=== PATIENT | male | born 1950 | race Caucasian/White ===

== ENCOUNTER 2017-12-06 17:57 | Emergency (ER) | payer BC, MEDICARE, SELFPAY ==
[2017-12-06 18:32] VITALS: BP 141/84; PULSE 103; RESP 16; TEMP 37; O2SAT 96; BMI 26.5
[2017-12-06 19:44] VITALS: PULSE 97; RESP 18; O2SAT 98
[2017-12-06 20:01] LABS: Absolute Lymphocyte Count 2.93 X10^3/ul (0.83-4.51); Absolute Neutrophil Count 4.6 X10^3/uL (2.0-7.7); Basophil# 0.02 X10^3/uL; Basophil% 0.2 % (0-1); Eosinophil# 0.34 X10^3/uL; Hematocrit 42.1 % (40-54); Hemoglobin 14.2 g/dl (13.0-16.5); Lymphocyte # 2.93 X10^3/ul (4.0); Lymphocyte % 34.8 % (19-41); Mean Corp Hgb Conc 33.7 g/gl (32-36); Mean Corpuscular Hgb 34.9 pg (27.0-32.0); Mean Corpuscular Volume 103.4 fL (80-94); Mean Platelet Vol. 10.6 fl (6.2-12.0); Monocyte% 5.9 % (0-10); Neutrophil # 4.61 X10^3/uL (2.7-7.7); Neutrophil % 54.7 % (47-70); Platelet Count 319 K/mm3 (150-450); RBC Distribution Width CV 13.3 % (11.6-14.6); RBC Distribution Width SD 50.4 fl (35.1-43.9); Red Blood Count 4.07 M/mm3 (4.6-6.2); White Blood Count 8.4 K/mm3 (4.4-11.0)
[2017-12-06 20:02] LABS: POSITIVE COUNT NO; POSITIVE DIFFERENTIAL NO; POSITIVE MORPHOLOGY NO
[2017-12-06 20:14] LABS: Anion Gap 7 (5-15); BUN 8 mg/dL (7-18); BUN/Creat Ratio 7.4 RATIO (10-20); Calcium,Total 8.8 mg/dL (8.5-10.1); Chloride 106 mmol/L (98-107); Creatinine, Serum 1.08 mg/dL (0.70-1.30); EST Glomerular Filtration Rate 73 mL/min (>60); Est Glom Filt Rate - Afr Amer 88 mL/min (>60); Estimated Creatinine Clearance 67.28 ml/min; Glucose 109 mg/dL (74-106); Potassium 4.1 mmol/L (3.5-5.1); Sodium Level 140 mmol/L (136-145)
--- NOTE | 2017-12-06 20:17 | NURSING ---
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
--- NOTE | 2017-12-06 20:33 | EKG12_ITS ---
Test Reason : Blood Pressure : / mmHG Vent. Rate : 071 BPM Atrial Rate : 071 BPM P-R Int : 128 ms QRS Dur : 088 ms QT Int : 396 ms P-R-T Axes : 063 -19 039 degrees QTc Int : 430 ms Normal sinus rhythm Septal infarct , age undetermined Abnormal ECG Confirmed by PURNIMA KELLOGG, INA ([id number]), purchase request editor GIGI PRASAD ([id number]) on 12/07/2017 3:56:57 PM Referred By: Confirmed By:INA FELTON MD
[2017-12-06 20:44] VITALS: PULSE 101; RESP 20; O2SAT 98
--- NOTE | 2017-12-06 20:49 | ED.RN ---
COUNSELING CENTER CALLED AND TAL WILL BE IN TO SEE PATIENT IN THE NEAR FUTURE
--- NOTE | 2017-12-06 21:20 | NURSING ---
CRISIS ON SITE
[2017-12-06 21:53] VITALS: BP 138/78; PULSE 99; RESP 18; O2SAT 99
--- NOTE | 2017-12-06 21:54 | NURSING ---
TAL HAD ARRIVED FROM CRISIS AND IS GOING TO TALK WITH THE PT.
[2017-12-06 21:57] LABS: Amphetamine Urine VISTA NEGATIVE (<1000 ng/mL); Barbiturate Urine VISTA NEGATIVE (< 200 ng/mL); Benzodiazepine Urine VISTA NEGATIVE (< 200 ng/mL); Cocaine Urine VISTA NEGATIVE (< 300 ng/mL); Ecstacy Urine VISTA NEGATIVE (< 500 ng/mL); Methadone Urine VISTA NEGATIVE (< 300 ng/mL); PCP Urine VISTA NEGATIVE (< 25 ng/mL); THC Urine VISTA NEGATIVE (< 50 ng/mL); Vista UDS pH Range 5
--- NOTE | 2017-12-06 22:39 | ED.DEP ---
ED Disposition - Plan for ED Patient: Disposition: Home or Assisted Living Chief Complaint: Mental Health Referrals: Counseling,Center [GROUP OF PHYSICIANS] - 1 Day Additional Instructions: You are being discharged to [facility]. We will follow-up your pillowcase folder and the counseling center tomorrow. Return to ER feeling worse.
[2017-12-06 22:59] VITALS: BP 124/76; PULSE 85; RESP 18; O2SAT 94
== END 2017-12-06 23:00 | disposition home or self-care (01) ==
PROVIDERS: Emergency Provider Emergency Medicine; Family Provider Family Medicine; PCP Family Medicine
DX: F22 Delusional disorders (principal); Z59.0 Homelessness; I25.2 Old myocardial infarction; I25.10 Atherosclerotic heart disease of native coronary artery without angina pectoris; Z72.0 Tobacco use; F99 Mental disorder, not otherwise specified; Z79.899 Other long term (current) drug therapy
CPT/HCPCS: 80048; 80307; 80320; 85025; 93005; 99284; G0480

== ENCOUNTER 2017-12-13 17:29 | Emergency (ER) | payer BC, MEDICARE, SELFPAY ==
[2017-12-13 17:34] VITALS: BP 85/57; PULSE 76; RESP 20; TEMP 36.6; O2SAT 94; BMI 26.5
--- NOTE | 2017-12-13 17:49 | EKG12_ITS ---
Test Reason : Blood Pressure : / mmHG Vent. Rate : 074 BPM Atrial Rate : 074 BPM P-R Int : 128 ms QRS Dur : 082 ms QT Int : 368 ms P-R-T Axes : 072 -24 059 degrees QTc Int : 408 ms Normal sinus rhythm Septal infarct , age undetermined Abnormal ECG Confirmed by PURNIMA KELLOGG, INA ([id number]), editor greeting card GIGI PRASAD ([id number]) on 12/15/2017 3:58:17 PM Referred By: JAMAL Confirmed By:INA FELTON MD
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
--- NOTE | 2017-12-13 17:51 | RAD_ITS ---
STUDY: X-RAY CHEST REASON FOR EXAM: Male, 66 years old. Chest pain TECHNIQUE: Single AP portable view of the chest. COMPARISON: Prior study of 12/28/2016 FINDINGS: security monitor leads are present. The lungs are clear and expanded. There is no demonstrated pleural abnormality. Normal size heart. Normal mediastinum and claude. Normal visualized pulmonary arteries. Normal visualized aortic arch and descending thoracic aorta. Normal visualized thoracic spine. Normal visualized ribs, clavicles, and shoulders. There is no demonstrated abnormality of the visualized soft tissue structures of the upper abdomen. RAD/Chest 1 View (Portable) IMPRESSION: No acute cardiopulmonary disease process is seen. Chest findings are stable in the interval. Electronically Signed: Hossein Gill MD at 18:19 EDT , Service support ,
[2017-12-13 18:25] LABS: Absolute Lymphocyte Count 2.38 X10^3/ul (0.83-4.51); Absolute Neutrophil Count 4.9 X10^3/uL (2.0-7.7); Basophil# 0.02 X10^3/uL; Basophil% 0.3 % (0-1); Eosinophil# 0.17 X10^3/uL; Eosinophils% 2.1 % (0-5); Hemoglobin 14.1 g/dl (13.0-16.5); Lymphocyte # 2.38 X10^3/ul (4.0); Lymphocyte % 29.8 % (19-41); Mean Corp Hgb Conc 32.8 g/gl (32-36); Mean Corpuscular Hgb 33.8 pg (27.0-32.0); Mean Corpuscular Volume 103.1 fL (80-94); Mean Platelet Vol. 10.9 fl (6.2-12.0); Monocyte# 0.56 X10^3/uL; Neutrophil # 4.86 X10^3/uL (2.7-7.7); Neutrophil % 60.7 % (47-70); POSITIVE COUNT NO; POSITIVE DIFFERENTIAL NO; POSITIVE MORPHOLOGY NO; Platelet Count 309 K/mm3 (150-450); RBC Distribution Width CV 13.2 % (11.6-14.6); RBC Distribution Width SD 49.6 fl (35.1-43.9); Red Blood Count 4.17 M/mm3 (4.6-6.2)
[2017-12-13 18:52] LABS: Anion Gap 5 (5-15); BUN 19 mg/dL (7-18); Calcium,Total 8.8 mg/dL (8.5-10.1); Chloride 108 mmol/L (98-107); Creatinine, Serum 0.95 mg/dL (0.70-1.30); EST Glomerular Filtration Rate 84 mL/min (>60); Est Glom Filt Rate - Afr Amer 102 mL/min (>60); Estimated Creatinine Clearance 76.49 ml/min; Glucose 84 mg/dL (74-106); Lipase 85 U/L (73-393); Potassium 4.1 mmol/L (3.5-5.1); Sodium Level 141 mmol/L (136-145)
[2017-12-13 19:52] VITALS: BP 112/70; PULSE 74; RESP 18; O2SAT 95
--- NOTE | 2017-12-13 21:22 | ED.DEP ---
ED Disposition - Plan for ED Patient: Chief Complaint: Chest Pain Instructions: ED Chest Pain Atypical Unkn Cause Referrals: Bernard Barber MD [Primary Care Provider] - Amari Pierson MD [STAFF PHYSICIAN] -
[2017-12-13 21:30] VITALS: BP 96/68; PULSE 73; RESP 18; O2SAT 96
== END 2017-12-13 21:31 | disposition home or self-care (01) ==
PROVIDERS: Emergency Provider Emergency Medicine; Family Provider Family Medicine; PCP Family Medicine
DX: R07.9 Chest pain, unspecified (principal); R06.00 Dyspnea, unspecified; I10 Essential (primary) hypertension; E78.00 Pure hypercholesterolemia, unspecified; F17.200 Nicotine dependence, unspecified, uncomplicated
CPT/HCPCS: 71045; 80048; 83690; 84484; 85025; 93005; 99285; J7030; A4216

== ENCOUNTER 2018-01-24 20:40 | Emergency (ER) | payer BC, MEDICARE, SELFPAY ==
[2018-01-24 20:43] VITALS: BP 110/70; PULSE 87; RESP 17; TEMP 36.9; O2SAT 97; BMI 26.1
--- NOTE | 2018-01-24 20:52 | NURSING ---
PUFFER TENDER CALLED FOR EKG, PULLED OLD EKG'S FOR
--- NOTE | 2018-01-24 21:27 | EKG12_ITS ---
Test Reason : CP Blood Pressure : / mmHG Vent. Rate : 071 BPM Atrial Rate : 071 BPM P-R Int : 126 ms QRS Dur : 084 ms QT Int : 402 ms P-R-T Axes : 072 -23 056 degrees QTc Int : 436 ms Normal sinus rhythm Septal infarct , age undetermined, cannot be excluded Abnormal ECG Confirmed by CHERYL KELLOGG, BEN ([id number]), film editor GIGI PRASAD ([id number]) on 01/27/2018 12:51:24 PM Referred By: ROSA ISELA Confirmed By:BEN LUNA MD
--- NOTE | 2018-01-24 21:35 | RAD_ITS ---
STUDY: X-RAY CHEST REASON FOR EXAM: Male, 67 years old. Back pain and numbness and tingling in feet and hands TECHNIQUE: Single AP portable view of the chest. COMPARISON: Prior study of December 13, 2017 FINDINGS: bus monitor leads are present. The lungs are clear and expanded. There is an accessory azygos fissure of the right upper lobe representing an anatomical variant. There is no demonstrated pleural abnormality. Normal size heart. Normal mediastinum and claude. Normal visualized pulmonary arteries. Normal visualized aortic arch and descending thoracic aorta. Normal visualized thoracic spine. Normal visualized ribs, clavicles, and shoulders. There is no demonstrated abnormality of the visualized soft tissue structures of the upper abdomen. RAD/Chest 1 View (Portable) IMPRESSION: Normal x-ray examination of the chest. Electronically Signed: Hossein Gill MD at 22:00 EDT , Service support ,
[2018-01-24 21:39] VITALS: O2SAT 100
[2018-01-24] MEDS: Aspirin 81 MG TAB.CHEW 324 MG PO (21:47)
[2018-01-24 21:58] LABS: Absolute Lymphocyte Count 2.76 X10^3/ul (0.83-4.51); Absolute Neutrophil Count 5.4 X10^3/uL (2.0-7.7); Basophil# 0.04 X10^3/uL; Basophil% 0.4 % (0-1); Eosinophil# 0.45 X10^3/uL; Eosinophils% 4.8 % (0-5); Hematocrit 39.4 % (40-54); Hemoglobin 13.1 g/dl (13.0-16.5); Lymphocyte # 2.76 X10^3/ul (4.0); Lymphocyte % 29.4 % (19-41); Mean Corp Hgb Conc 33.2 g/gl (32-36); Mean Corpuscular Volume 102.3 fL (80-94); Mean Platelet Vol. 10.7 fl (6.2-12.0); Monocyte# 0.71 X10^3/uL; Monocyte% 7.6 % (0-10); Neutrophil # 5.42 X10^3/uL (2.7-7.7); Neutrophil % 57.6 % (47-70); POSITIVE COUNT NO; POSITIVE DIFFERENTIAL NO; POSITIVE MORPHOLOGY NO; Platelet Count 253 K/mm3 (150-450); RBC Distribution Width CV 13.1 % (11.6-14.6); RBC Distribution Width SD 49.1 fl (35.1-43.9); Red Blood Count 3.85 M/mm3 (4.6-6.2); White Blood Count 9.4 K/mm3 (4.4-11.0)
[2018-01-24 22:31] LABS: Anion Gap 6 (5-15); BUN 21 mg/dL (7-18); BUN/Creat Ratio 19.6 RATIO (10-20); Calcium,Total 8.8 mg/dL (8.5-10.1); Chloride 108 mmol/L (98-107); Creatinine, Serum 1.07 mg/dL (0.70-1.30); EST Glomerular Filtration Rate 73 mL/min (>60); Est Glom Filt Rate - Afr Amer 89 mL/min (>60); Estimated Creatinine Clearance 66.99 ml/min; Glucose 99 mg/dL (74-106); Sodium Level 140 mmol/L (136-145)
--- NOTE | 2018-01-24 22:44 | ED.VISSUMM ---
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 He reports that today he has had intermittent episodes of chest pain he describes as sharp and lasting seconds. He is pain-free currently. He reports the pain is severe at worst. He denies any nausea, vomiting, shortness of breath, or diaphoresis. This pain is not exertional. Patient reports that he moved to [facility] approximately 1 month ago. He is concerned that the color of the medications that they are giving him is different than what he had been taking at home. Review of systems: General: No fever, chills, cold sweats. Cardiovascular: No palpitations. Respiratory: No cough, shortness of breath, dyspnea on exertion. Gastrointestinal: No abdominal pain, nausea, vomiting, diarrhea, melena, or hematochezia. Genitourinary: No dysuria, frequency, hematuria. Skin: No rash. Neuro: No headache, numbness, weakness. Physical Examination: Vitals: Stable. Afebrile. General: Well-nourished and well-developed. Head: Normocephalic atraumatic. Neck: Supple, no lymphadenopathy. No JVD. Nontender. Cardiovascular: Regular rate and rhythm. 2 out of 6 systolic murmur. Respiratory: No respiratory distress. Clear to auscultation bilaterally. Abdominal: Soft, nontender, nondistended, normal bowel sounds. No guarding, rebound, or peritoneal signs. Back: Nontender. Extremities: Nontender, no edema. Skin: Normal color, no rash. Neurologic: Alert and oriented ?3. Cranial nerves II through XII are intact. Normal strength and sensation. Psych: Normal affect. Test Results: EKG is sinus at 71 with no acute changes. Is unchanged from last month. Troponins normal. Chem-7 is more for chloride 108 and BUN 21. CBC is normal. Emergency Department Course and Treatment: I did obtain the patient's medication list from [facility] as well as is a admission H&P from December 09. The medications are the same on both of these lists. I discussed this with the patient and he is convinced that he is getting the wrong medications. Treatment Plan: The patient does have a history of schizophrenia and has a case finisher from the counseling center. He does not meet criteria for admission to a psychiatric facility. However, I did contact the counseling center and asked that the his case management touch base with him tomorrow. Disposition: To home in improved and stable condition. Impression: 1. Atypical chest pain. 2. History of schizophrenia. This note was generated with [employer] dictation software. It may contain incorrect words, spelling, and punctuation that were not noted in review of the chart prior to signing ED Disposition - Plan for ED Patient: Disposition: Home or Assisted Living Chief Complaint: Chest Pain Instructions: ED Chest Pain Atypical Unkn Cause Referrals: Bernard Barber MD [Primary Care Provider] - As soon as possible
[2018-01-24 23:20] VITALS: BP 133/61; PULSE 71; RESP 18; O2SAT 99
== END 2018-01-24 23:24 | disposition home or self-care (01) ==
LOC: ED 22:24
PROVIDERS: Emergency Provider Emergency Medicine; Family Provider Family Medicine; PCP Family Medicine
DX: R07.89 Other chest pain (principal); E78.00 Pure hypercholesterolemia, unspecified; F17.210 Nicotine dependence, cigarettes, uncomplicated; F20.9 Schizophrenia, unspecified
CPT/HCPCS: 71045; 80048; 84484; 85025; 93005; 99285; A4216

== ENCOUNTER 2018-02-15 08:55 | Emergency (ER) | payer BC, MEDICARE, SELFPAY ==
[2018-02-15 08:56] VITALS: BP 118/54; PULSE 71; RESP 18; TEMP 36.1; O2SAT 97; BMI 27.3
--- NOTE | 2018-02-15 09:13 | EKG12_ITS ---
Test Reason : CP Blood Pressure : / mmHG Vent. Rate : 064 BPM Atrial Rate : 064 BPM P-R Int : 128 ms QRS Dur : 084 ms QT Int : 414 ms P-R-T Axes : 066 -29 030 degrees QTc Int : 427 ms Normal sinus rhythm Septal infarct , age undetermined Abnormal ECG Confirmed by PURNIMA KELLOGG, INA ([id number]), movie editor GIGI PRASAD ([id number]) on 02/18/2018 3:00:43 PM Referred By: GURVINDER Confirmed By:INA FELTON MD
--- NOTE | 2018-02-15 09:29 | RAD_ITS ---
STUDY: X-RAY CHEST REASON FOR EXAM: Male, 67 years old. Chest pain. TECHNIQUE: PA and lateral views of the chest. COMPARISON: Comparison is made with prior study dated January 24, 2018. FINDINGS: EKG electrodes are seen. There is evidence of increased markings with areas of confluence in the right middle lobe and lingular segment of the left upper lobe as compared to prior study. This may represent early infiltrates. Radiographic follow-up is recommended. Azygos lobe is seen. This is a normal variant. There is no demonstrated pleural abnormality. Normal size heart. Normal mediastinum and claude. Normal visualized pulmonary arteries. Normal visualized aortic arch and descending thoracic aorta. Normal visualized thoracic spine. Normal visualized ribs, clavicles, and shoulders. There is no demonstrated abnormality of the visualized soft tissue structures of the upper abdomen. RAD/Chest PA and Lateral IMPRESSION: Findings suggestive of a patch infiltrates in the right middle lobe and lingular segment of the left upper lobe. Radiographic follow-up is recommended. Electronically Signed: Thad Brooks MD at 9:55 EDT Tel [phone], Service support ,
[2018-02-15 09:33] LABS: Absolute Neutrophil Count 4.3 X10^3/uL (2.0-7.7); Basophil# 0.02 X10^3/uL; Basophil% 0.3 % (0-1); Eosinophil# 0.22 X10^3/uL; Eosinophils% 3.2 % (0-5); Lymphocyte % 23.6 % (19-41); Mean Corp Hgb Conc 34.2 g/gl (32-36); Mean Corpuscular Hgb 34.7 pg (27.0-32.0); Mean Corpuscular Volume 101.3 fL (80-94); Monocyte# 0.59 X10^3/uL; Monocyte% 8.7 % (0-10); Neutrophil # 4.33 X10^3/uL (2.7-7.7); Neutrophil % 64.1 % (47-70); Platelet Count 251 K/mm3 (150-450); RBC Distribution Width CV 13.1 % (11.6-14.6); RBC Distribution Width SD 48.6 fl (35.1-43.9); Red Blood Count 3.75 M/mm3 (4.6-6.2); White Blood Count 6.8 K/mm3 (4.4-11.0)
[2018-02-15 09:34] LABS: POSITIVE COUNT NO; POSITIVE DIFFERENTIAL NO; POSITIVE MORPHOLOGY NO
[2018-02-15 09:46] LABS: ALB/GLOB Ratio 1.2 RATIO (0.9-2.4); AST(SGOT) 15 U/L (15-37); Alanine Aminotransfer ALT/SGPT 21 U/L (16-61); Albumin, Serum 3.6 g/dL (3.2-5.0); Alkaline Phosphatase 39 U/L (45-117); Anion Gap 8 (5-15); BUN 16 mg/dL (7-18); BUN/Creat Ratio 12.6 RATIO (10-20); Calcium,Total 8.5 mg/dL (8.5-10.1); Chloride 107 mmol/L (98-107); Creatinine, Serum 1.27 mg/dL (0.70-1.30); EST Glomerular Filtration Rate 60 mL/min (>60); Est Glom Filt Rate - Afr Amer 73 mL/min (>60); Estimated Creatinine Clearance 56.44 ml/min; Glucose 117 mg/dL (74-106); Lipase 82 U/L (73-393); Potassium 4.3 mmol/L (3.5-5.1); Protein, Total 6.6 g/dL (6.4-8.2); Sodium Level 142 mmol/L (136-145)
--- NOTE | 2018-02-15 10:18 | ED.DCSUM_ITS ---
- ER Visit Summary Date of Service: 02/15/18 Chief Complaint: Multiple complaints History of Present Illness: The patient is a 67 M who presents with multiple complaints. He states I have a weird feeling inside me. He complains of burning in his hands especially the right hand. He complains of back pain which he attributes to arthritis. He complains of gas pains throughout his stomach. Earlier he felt like he needed to burp and then he had pain radiate up his chest into my heart. He also complains of a cough. Physical Examination: Afebrile vitals are normal Moist mucous membranes Heart regular rate and rhythm Lungs are clear without rales rhonchi or wheezes The abdomen soft with mild diffuse abdominal tenderness Patient has focal tenderness along the extensor tendons of the right thumb no focal bony tenderness active full range of motion with normal sensation and brisk capillary refill Test Results: EKG shows sinus rhythm at a rate of 64. CBC CMP lipase troponin all normal. Chest x-ray shows patchy infiltrates in the right middle lobe and possible left lingula. Emergency Department Course and Treatment: Patient underwent a broad workup given his multiple complaints. In regards to his hand pain I believe he does have a component of tendinitis given focal tenderness along the extensors of the right thumb. He was given a thumb spica splint. After an episode of flatus his abdominal pain is completely resolved. He has a repeat benign exam. He does complain of cough and chest x-ray shows possible infiltrates. He will be treated with Levaquin given penicillin and cephalosporin allergies. He will follow-up with his primary care physician and he was discharged home. Treatment Plan: [] Disposition: Discharge Impression: Community acquired pneumonia Tendinitis right hand Abdominal pain, resolved This note was generated with [employer] (formerly known [employer]) dictation software. It may contain incorrect words, spelling, and punctuation that were not noted in review of the chart prior to signing ED Disposition - Plan for ED Patient: Chief Complaint: Other, Pain/Inj Referrals: Bernard Barber MD [Primary Care Provider] -
--- NOTE | 2018-02-15 10:18 | ED.DEP ---
ED Disposition - Plan for ED Patient: Chief Complaint: Other, Pain/Inj Instructions: What Is De Quervain Tenosynovitis?, ED Pneumonia Adult, ED Abdominal Pain Unkn Cause Male Prescriptions: levoFLOXacin tablet [Levaquin] 500 mg PO DAILY #7 tab Referrals: Bernard Barber MD [Primary Care Provider] -
[2018-02-15 10:58] VITALS: BP 150/72; PULSE 74; RESP 18; O2SAT 95
== END 2018-02-15 10:59 | disposition home or self-care (01) ==
PROVIDERS: Emergency Provider Emergency Medicine; Family Provider Family Medicine; PCP Family Medicine
DX: J18.9 Pneumonia, unspecified organism (principal); M77.9 Enthesopathy, unspecified; R10.9 Unspecified abdominal pain; I10 Essential (primary) hypertension; K21.9 Gastro-esophageal reflux disease without esophagitis; E78.00 Pure hypercholesterolemia, unspecified; I25.2 Old myocardial infarction; Z72.0 Tobacco use
CPT/HCPCS: 71046; 80053; 83690; 84484; 85025; 93005; 99284; A4216

== ENCOUNTER 2018-02-15 19:00 | Emergency (ER) | payer BC, MEDICARE, SELFPAY ==
[2018-02-15 19:00] VITALS: BP 119/62; PULSE 63; RESP 14; TEMP 35.5; O2SAT 99; BMI 27.0
--- NOTE | 2018-02-15 21:55 | ED.RN ---
PT STATES THAT HE IS TIRED OF WAITING FOR THE DOCTOR AND OUT IN THE HALLWAY STATING THAT WE WERE NOT DOING ANYTHING FOR HIM. I WENT IN TO TALK THE PATIENT AND EXPLAIN TO HIM THAT OTHER PATIENT WERE HERE BEFORE HIM AND THAT IS WHY HE IS WAITING. PT AGREES TO GO BACK TO HIS ROOM AND WAIT FOR THE DR. AFTER TWO MINUTES OF WAITING DR NATARAJAN WALKED INTO THE ROOM AND TALKS TO THE PATIENT. THE PATIENT STATES THAT HE WANTS TO KNOW WHAT IS WRONG WITH HIS HANDS THAT FEEL LIKE THEY ARE BURNING. DR NATARAJAN EXPLAINED THAT HE DOESN'T KNOW WHAT IS WRONG WITH HIS HANDS BUT IF IT IS THE SAME PAIN THAT HE SAW THE PATIENT FOR SEVERAL MONTHS AGO THEN THE PATIENT NEEDS TO FOLLOW UP WITH HIS PCP. HE THEN EXPLAINED TO THE PATIENT THAT HE WOULD NOT BE GIVING HIM PAIN MEDICATION TONIGHT. AND THEN ASKED IF THE PT WOULD STILL LIKE TO BE SEE, PT PT STATED NO I DO NOT PT THEN WALKED OFF THE UNIT ASKING HOW HE IS GOING TO GET HOME. OFFERED TO HELP CALL SEVERAL PEOPLE FOR A RIDE HOME. PT ON WAY PAST TRIAGE DESK ASKING OFFICER RANDELL IF SHE WOULD TAKE HIM HOME. PT OFF UNIT VIA AMBULATION.
--- NOTE | 2018-02-15 23:59 | ED.DCSUM_ITS ---
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 He reports that his hands have been red and itch for months. He reports that this is painful. Physical Examination: Vitals: Stable. Afebrile. General: Well-nourished and well-developed. Head: Normocephalic atraumatic. Neck: Supple, no lymphadenopathy. No JVD. Nontender. Cardiovascular: Regular rate and rhythm. No murmurs. Respiratory: No respiratory distress. Clear to auscultation bilaterally. Abdominal: Soft, nontender, nondistended, normal bowel sounds. No guarding, rebound, or peritoneal signs. Back: Nontender. Extremities: Nontender, no edema. 2+ radial pulses bilaterally. Skin: Mild erythema to him his palms bilaterally. Neurologic: Alert and oriented ?3. Cranial nerves II through XII are intact. Normal strength and sensation. Psych: Normal affect. Test Results: The patient was seen in the emergency department this morning approximately 12 hours ago. At that time he had a CBC that was normal. Chem-7 that was marked for glucose 117. LFTs are marked for an alk phos of 39. His troponin was negative. His chest x-ray is read as pneumonia. I do not think that there is any indication to repeat any of this. Emergency Department Course and Treatment: I discussed the patient that I do not have an explanation for this redness. However, if it is been present for months that he can follow-up his primary care physician for this. He is quite upset that I will not treat him with pain medications for this. He walked out of the emergency department. Treatment Plan: Left prior to completion of treatment. Impression: 1. Palmar erythema, bilaterally. This note was generated with [employer] dictation software. It may contain incorrect words, spelling, and punctuation that were not noted in review of the chart prior to signing ED Disposition - Plan for ED Patient: Disposition: Against Medical Advice Chief Complaint: General Illness Referrals: Bernard Barber MD [Primary Care Provider] -
== END 2018-02-15 22:12 | disposition left against medical advice (07) ==
PROVIDERS: Emergency Provider Emergency Medicine; Family Provider Family Medicine; PCP Family Medicine
DX: L53.9 Erythematous condition, unspecified (principal); E78.00 Pure hypercholesterolemia, unspecified; F20.9 Schizophrenia, unspecified; Z72.0 Tobacco use

== ENCOUNTER 2018-03-22 20:05 | Emergency (ER) | payer BC, MEDICARE, SELFPAY ==
[2018-03-22 20:07] VITALS: BP 108/63; PULSE 70; RESP 14; TEMP 36.6; O2SAT 98; BMI 27.0
[2018-03-22 21:27] LABS: Absolute Lymphocyte Count 2.41 X10^3/ul (0.83-4.51); Absolute Neutrophil Count 3.4 X10^3/uL (2.0-7.7); Basophil# 0.01 X10^3/uL; Basophil% 0.2 % (0-1); Eosinophils% 3.1 % (0-5); Hematocrit 37.9 % (40-54); Hemoglobin 12.7 g/dl (13.0-16.5); Lymphocyte # 2.41 X10^3/ul (4.0); Mean Corp Hgb Conc 33.5 g/gl (32-36); Mean Corpuscular Hgb 34.1 pg (27.0-32.0); Mean Corpuscular Volume 101.9 fL (80-94); Mean Platelet Vol. 10.9 fl (6.2-12.0); Monocyte# 0.51 X10^3/uL; Monocyte% 7.8 % (0-10); Neutrophil # 3.37 X10^3/uL (2.7-7.7); Neutrophil % 51.7 % (47-70); Platelet Count 253 K/mm3 (150-450); RBC Distribution Width CV 13.5 % (11.6-14.6); RBC Distribution Width SD 50.2 fl (35.1-43.9); Red Blood Count 3.72 M/mm3 (4.6-6.2); White Blood Count 6.5 K/mm3 (4.4-11.0)
[2018-03-22 21:30] LABS: POSITIVE COUNT NO; POSITIVE DIFFERENTIAL NO; POSITIVE MORPHOLOGY NO
[2018-03-22 21:39] LABS: BUN 20 mg/dL (7-18); Calcium,Total 8.9 mg/dL (8.5-10.1); Chloride 109 mmol/L (98-107); Creatinine, Serum 1.25 mg/dL (0.70-1.30); EST Glomerular Filtration Rate 61 mL/min (>60); Est Glom Filt Rate - Afr Amer 74 mL/min (>60); Estimated Creatinine Clearance 57.35 ml/min; Glucose 109 mg/dL (74-106); Potassium 4.7 mmol/L (3.5-5.1); Sodium Level 139 mmol/L (136-145)
[2018-03-22 21:40] LABS: Anion Gap 4 (5-15)
--- NOTE | 2018-03-22 21:59 | ED.VISSUMM ---
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 He has not taken anything for the pain. He states he has had this before. He states he has had this for years. He states he is uncertain what he should take. There is no history of trauma. He denies paresthesia, anesthesia motor weakness. He denies any other symptoms. Past medical history of alcoholism. Physical Examination: Patient has deformity of his nails consistent with nail patella syndrome. There is no swelling of the hypo-thenar eminence of thenar eminence. There is no swelling of the right thumb. There is no neurovascular compromise i.e. normal capillary refill and sensation. He has full active range of motion of his thumb and fingers. Median, radial and ulnar function intact. There is no erythema, warmth, induration, lymphangitis or lymphadenopathy. Test Results: CBC reveals macrocytic anemia. This is most likely secondary to alcoholism. Electro panel is normal. Emergency Department Course and Treatment: Electrode panel was obtained because there is an association with renal failure with nail-patella syndrome. And concern with regards to administration of NSAIDs in this 67-year-old gentleman. Treatment Plan: Tylenol and follow-up with PCP. Disposition: Discharged home Impression: 1. Right hand/thumb pain of unknown etiology 2. History of nail patella syndrome 3. 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 It may contain incorrect words, spelling, and punctuation that were not noted in review of the chart prior to signing ED Disposition - Plan for ED Patient: Disposition: Home or Assisted Living Chief Complaint: Upper Extremity Injury Instructions: ED Acute Pain [facility] Referrals: Care Physician,No Primary [Primary Care Provider] - Additional Instructions: Follow-up with the doctor you were assigned to by [employer] insurance. Take Tylenol for pain as needed
--- NOTE | 2018-03-22 22:03 | ED.DCSUM_ITS ---
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 He has not taken anything for the pain. He states he has had this before. He states he has had this for years. He states he is uncertain what he should take. There is no history of trauma. He denies paresthesia, anesthesia motor weakness. He denies any other symptoms. Past medical history of alcoholism. Physical Examination: Patient has deformity of his nails consistent with nail patella syndrome. There is no swelling of the hypo-thenar eminence of thenar eminence. There is no swelling of the right thumb. There is no neurovascular compromise i.e. normal capillary refill and sensation. He has full active range of motion of his thumb and fingers. Median, radial and ulnar function intact. There is no erythema, warmth, induration, lymphangitis or lymphadenopathy. Test Results: CBC reveals macrocytic anemia. This is most likely secondary to alcoholism. Electro panel is normal. Emergency Department Course and Treatment: Electrode panel was obtained because there is an association with renal failure with nail-patella syndrome. And concern with regards to administration of NSAIDs in this 67-year-old gentleman. Treatment Plan: Tylenol and follow-up with PCP. Disposition: Discharged home Impression: 1. Right hand/thumb pain of unknown etiology 2. History of nail patella syndrome 3. 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 It may contain incorrect words, spelling, and punctuation that were not noted in review of the chart prior to signing ED Disposition - Plan for ED Patient: Disposition: Home or Assisted Living Chief Complaint: Upper Extremity Injury Instructions: ED Acute Pain [facility] Referrals: Care Physician,No Primary [Primary Care Provider] - Additional Instructions: Follow-up with the doctor you were assigned to by [employer]. Take Tylenol for pain as needed
--- NOTE | 2018-03-22 22:44 | ED.RN ---
pt had previously left without d/c papers. then came back for personal belongings. offered paperwork but pt did not want.
== END 2018-03-22 22:15 | disposition home or self-care (01) ==
PROVIDERS: Emergency Provider Emergency Medicine
DX: M79.644 Pain in right finger(s) (principal); D53.9 Nutritional anemia, unspecified; Z72.0 Tobacco use; F10.21 Alcohol dependence, in remission; Q87.2 Congenital malformation syndromes predominantly involving limbs
CPT/HCPCS: 80048; 85025; 99282

== ENCOUNTER 2018-04-05 15:14 | Emergency (ER) | payer BC, MEDICARE, SELFPAY ==
[2018-04-05 15:15] VITALS: BP 104/59; PULSE 70; RESP 17; TEMP 37.1; O2SAT 98; BMI 27.0
--- NOTE | 2018-04-05 15:43 | ED.VISSUMM ---
- ER Visit Summary Date of Service: 04/05/18 Chief Complaint: Mental health evaluation History of Present Illness: The patient is a 67 M brought in by police for mental health evaluation. Patient states that [facility], he has been there since January, states he is frustrated with the facility with people. States he would ask for cigarettes and he would be hassled stating he needs to buy his own cigarettes. States he left the facility at 7 AM today he is trying to get apartment back at the [place] which he stayed there before. He was at a gas station please saw him, nursing reports he is wearing winter clothes, however he had a fisherman's events. He denies any suicidal or homicidal ideations. Denies any visual or auditory hallucinations. Does not admit possible history of anxiety and depression. He does not follow counselor or psychiatrist. Tobacco history. Denies alcohol or illicit drug use. Denies any vomiting or diarrhea. No urinary symptoms. No cough. No further complaints. Physical Examination: General: Alert and oriented ?3, no acute distress HEENT: Normocephalic, atraumatic. Moist mucosa membranes Neck: supple, nontender. Cardiovascular: Regular rate and rhythm, no murmurs Respiratory: Normal breath sounds, symmetric, no distress Abdomen: Soft, nontender, nondistended Extremities: Nontender, no edema, pulses intact ?4 Neuro: no focal neurological deficits. Psych: Denies suicidal homicidal ideations. Cooperative. Test Results: [] Emergency Department Course and Treatment: Patient vital signs stable, alert and oriented ?3. Cooperative. Denies any symptoms. Nursing did call [facility], they do agree to take him back. He has his own cigarettes currently. manager money was contacted, confirms that he was at the bank and took money out today. I do not feel currently labs are necessary. He is cooperative. He agrees to go back to the facility and try to arrange other living arrangements after the holiday. He will be discharged. Nursing called [facility], they will have transportation come for the patient. Treatment Plan: [] Disposition: Discharge Impression: Medical evaluation. This note was generated with [employer] dictation software. It may contain incorrect words, spelling, and punctuation that were not noted in review of the chart prior to signing ED Disposition - Plan for ED Patient: Disposition: Home or Assisted Living Chief Complaint: Suicidal Diagnosis: Medical evaluation Referrals: Care Physician,No Primary [Primary Care Provider] - Bernard Barber MD [NON-STAFF] - Additional Instructions: Return to [facility], may set up new living arrangements back at facility.
== END 2018-04-05 16:57 | disposition home or self-care (01) ==
PROVIDERS: Emergency Provider Emergency Medicine
DX: Z00.00 Encounter for general adult medical examination without abnormal findings (principal); I25.2 Old myocardial infarction; Z72.0 Tobacco use
CPT/HCPCS: 99285

== ENCOUNTER → 2018-04-09 11:01 | Emergency (ER) | payer BC, MEDICARE, SELFPAY ==
[2018-04-09 11:02] VITALS: BP 120/94; PULSE 66; RESP 18; TEMP 36.9; O2SAT 99
[2018-04-09 11:07] VITALS: BP 120/94; PULSE 67; RESP 18; O2SAT 100; BMI 27.3
--- NOTE | 2018-04-09 11:14 | CT_ITS ---
STUDY: CT ABDOMEN AND PELVIS WITHOUT CONTRAST REASON FOR EXAM: Male, 67 years old. Abdominal pain. Bloating and pressure. RADIATION DOSAGE (If Supplied By Facility): CTDIvol = ( 7.25 ) mGy, DLP = ( 376.21 ) mGycm TECHNIQUE: Transaxial images were obtained from the dome of the diaphragm to the symphysis pubis without oral contrast, and without intravenous contrast. Sagittal and coronal images were reconstructed. Individualized dose optimization techniques were used for this CT. COMPARISON: August 27, 2017. FINDINGS: The visualized lung bases are unremarkable. The visualized portions of the heart are within normal limits. Normal liver. Normal gallbladder and extrahepatic biliary system. Normal spleen. Normal pancreas. Normal bilateral adrenal glands. The right kidney is of normal size and cortical thickness. There is a 3 mm central calcification which may be vascular or represent a nonobstructing stone. There is no hydronephrosis. Normal right ureter. The left kidney is of normal size and cortical thickness. There is a central calcification measuring 4 mm in greatest dimension thought to be vascular. No renal calculi or hydronephrosis. Normal left ureter. Normal visualized stomach. Normal small intestine. There is scattered sigmoid diverticuli without acute inflammatory change. There is non-visualization of the appendix. There is diffuse atherosclerotic calcification of the abdominal aorta, without a demonstrated aneurysm. Normal inferior vena cava. Normal retroperitoneum. The urinary bladder is of normal size and wall thickness. There is a 1.7 x 1.2 x 1.3 cm Hutch diverticulum adjacent to the left UVJ. There is no evidence of mass or filling defect. The prostate is mildly enlarged. No pelvic lymphadenopathy. No free air or free fluid is seen within the peritoneal cavity. There is a small left inguinal hernia of omental fat. There is a small umbilical hernia with mesenteric fat. The abdominal wall is otherwise unremarkable. There is straightening of the lumbar lordosis with degenerative changes of the lumbar spine. CT/Abdomen/Pelvis without Cont IMPRESSION: 1. Stable bilateral renal vascular calcifications. No other evidence of renal or ureteral abnormality. 2. Left-sided Hutch diverticulum with no other evidence of bladder abnormality. 3. Scattered colonic diverticuli without acute inflammatory change. 4. Enlarged prostate. 5. No major interval change when compared to the prior study. Electronically Signed: Scotty Law DO at 12:15 EDT Tel [phone], Service support ,
[2018-04-09] MEDS: Ondansetron 4 MG/2 ML Vial IV ×2 (11:39→12:00)
[2018-04-09] MEDS: Morphine 4 MG/ML Syringe IV ×2 (11:39→12:00)
[2018-04-09 11:43] LABS: Absolute Neutrophil Count 4.5 X10^3/uL (2.0-7.7); Basophil# 0.02 X10^3/uL; Basophil% 0.3 % (0-1); Eosinophils% 2.8 % (0-5); Hematocrit 41.4 % (40-54); Hemoglobin 13.8 g/dl (13.0-16.5); Lymphocyte % 24.8 % (19-41); Mean Corp Hgb Conc 33.3 g/gl (32-36); Mean Corpuscular Hgb 34.1 pg (27.0-32.0); Mean Corpuscular Volume 102.2 fL (80-94); Mean Platelet Vol. 10.8 fl (6.2-12.0); Monocyte# 0.73 X10^3/uL; Neutrophil # 4.49 X10^3/uL (2.7-7.7); Neutrophil % 61.7 % (47-70); POSITIVE COUNT NO; POSITIVE DIFFERENTIAL NO; POSITIVE MORPHOLOGY NO; Platelet Count 297 K/mm3 (150-450); RBC Distribution Width SD 47.9 fl (35.1-43.9); Red Blood Count 4.05 M/mm3 (4.6-6.2); White Blood Count 7.3 K/mm3 (4.4-11.0)
[2018-04-09 11:48] LABS: Erythrocyte Sedimentation Rate 2 mm/hr (0-20)
[2018-04-09 11:59] LABS: Anion Gap 8 (5-15); BUN 19 mg/dL (7-18); BUN/Creat Ratio 18.1 RATIO (10-20); CRP < 2.90 mg/L (0.0-3.0); Calcium,Total 8.6 mg/dL (8.5-10.1); Chloride 107 mmol/L (98-107); Creatinine, Serum 1.05 mg/dL (0.70-1.30); EST Glomerular Filtration Rate 75 mL/min (>60); Est Glom Filt Rate - Afr Amer 91 mL/min (>60); Estimated Creatinine Clearance 68.27 ml/min; Glucose 87 mg/dL (74-106); Potassium 4.3 mmol/L (3.5-5.1); Sodium Level 142 mmol/L (136-145)
--- NOTE | 2018-04-09 12:33 | CM.ED ---
Social Work Note Referral from physician as pt is stating he does not want to return to [facility]. Introduced self and role at [facility]. The pt reports that he lives at [facility], but does not belong there anymore. Request that he elaborates and he states that he needs to go to a halfway. Inquire why and the pt states because my hands burn and I have pain here and points to his stomach. Pt reports to be independent with ADL's, does not use DME for ambulation. Inform the pt that he is not going to require a SNF for that and recommend that he reach out to his community case manager, Valerie, for assistance with changing his residence. Pt states that he does not have a PCP and provide with a list of area PCPs to become established with. Updated community case manager via of pt's ED visit. No further needs at this time and pt to return to [facility]. Angie Miller, MAINTENANCE MACHINE REPAIRER, SHUTTLER
[2018-04-09 13:37] VITALS: PULSE 57; RESP 16; O2SAT 97
[2018-04-09 14:03] VITALS: BP 118/73; PULSE 59; RESP 18; O2SAT 98
--- NOTE | 2018-04-09 14:51 | ED.VISSUMM ---
- ER Visit Summary Date of Service: 04/09/18 Chief Complaint: Pain History of Present Illness: The patient is a 67 M brought in by EMS. He reports a history of nail-patella syndrome that was diagnosed at [facility] when he was a child. He states because of this he gets pain to his hands and knees. He states this area is bothering him now along with a burning sensation in the bottom of his feet. This is also been going on for quite some time. He is complaining of some lower abdominal cramping. He denies vomiting or diarrhea. He denies dysuria or difficulty hearing. He tells me that he is not good enough to go back to [facility] which is an assisted living center. He thinks he needs to go to a senior living. Patient was noted to be here earlier this week. On review of that note he had left [facility] with the intentions of going to a previous apartment in [place]. Patient was found at a gas station by police and brought in. He returned to [facility] at that time. Physical Examination: Vital signs are unremarkable. Patient sitting upright in bed. He is in no acute distress and speaking full sentences. Head neck examination is unremarkable. Heart is regular rate and rhythm. Lung sounds are clear. Abdomen is soft with tenderness of the lower abdomen. There are no palpable hernias. He has active bowel sounds. There is no guarding or rebound. Upper extremity examination reveals mild tenderness of the thenar eminence of both hands. He has good cap refill distally. He has full range of motion without difficulty. Lower extremity examination reveals no focal tenderness. Test Results: CBC and chemistry studies are unremarkable. Sed rate and CRP are normal. CT flank shows stable bilateral renal vascular calcifications. There is a left sided Hutch diverticulum that is unchanged. There is scattered diverticuli without acute inflammation. There is no interval change when compared to prior study. Emergency Department Course and Treatment: Patient was initially given morphine, Zofran, and IV fluids. On repeat evaluation he is resting comfortably, but agitated and states that nobody believes him when he states he has these problems. I advised him that he can certainly have problems and even be in pain with normal testing, but because of the rarity of his condition he would require follow-up with a specialist, likely a hand specialist. At this time he is tolerating p.o. without difficulty and is eaten to see him which is in the emergency room. Social work did come to see him and states that he can go back to his assisted living center, he does not qualify for further advanced care. Patient was up ambulating in the emergency room without difficulty. He is referred back to his primary care physician at the assisted living center with recommendations for follow-up with hand and potentials start of gabapentin or other agent to help with his chronic nerve pain. Treatment Plan: [] Disposition: Discharge Impression: 1. Neuropathy 2. Abdominal pain, uncertain etiology This note was generated with [employer] dictation software. It may contain incorrect words, spelling, and punctuation that were not noted in review of the chart prior to signing ED Disposition - Plan for ED Patient: Chief Complaint: Upper Extremity Injury Instructions: ED Neuropathy Peripheral Additional Instructions: Follow-up with Dr Bateman through [facility]. You may need to be on medication for your nerve pain - this needs to be started by your primary doctor. You may require follow-up with a hand specialist and can see [facility] in [place].
[2018-04-09 15:24] VITALS: BP 107/63; PULSE 61; RESP 18
== END ==
PROVIDERS: Emergency Provider Emergency Medicine
DX: G62.9 Polyneuropathy, unspecified (principal); R10.9 Unspecified abdominal pain; E78.00 Pure hypercholesterolemia, unspecified; Z72.0 Tobacco use
CPT/HCPCS: 74176; 80048; 85025; 85652; 86140; 96374; 96375; 99285; A4216; J2405

== ENCOUNTER 2018-05-01 12:25 | Observation (INO) | payer MEDICARE, MEDICAID, SELFPAY ==
[2018-05-01] VITALS (10 sets, daily range): BP systolic 98–111; BP diastolic 53–73; PULSE 60–70; RESP 16–18; TEMP 36.8–36.9; O2SAT 96–99; BMI 26.7; BMI 26.2
--- NOTE | 2018-05-01 12:47 | EKG12_ITS ---
Test Reason : CP Blood Pressure : / mmHG Vent. Rate : 070 BPM Atrial Rate : 070 BPM P-R Int : 136 ms QRS Dur : 076 ms QT Int : 386 ms P-R-T Axes : 070 -32 035 degrees QTc Int : 416 ms Normal sinus rhythm Left axis deviation Low voltage QRS Septal infarct , age undetermined, cannot be excluded Abnormal ECG Confirmed by CHERYL KELLOGG, BEN ([id number]), assistant editor GIGI PRASAD ([id number]) on 05/11/2018 11:21:01 AM Referred By: Confirmed By:BEN LUNA MD
--- NOTE | 2018-05-01 12:47 | RAD_ITS ---
STUDY: X-RAY CHEST REASON FOR EXAM: Male, 67 years old. Chest pain TECHNIQUE: Single AP portable view of the chest. COMPARISON: February 15, 2018 chest x-ray FINDINGS: The lungs are clear and expanded. There is no demonstrated pleural abnormality. Normal size heart. Normal mediastinum and claude. Normal visualized pulmonary arteries. Normal visualized aortic arch and descending thoracic aorta. Normal visualized thoracic spine. Normal visualized ribs, clavicles, and shoulders. There is no demonstrated abnormality of the visualized soft tissue structures of the upper abdomen. RAD/Chest 1 View (Portable) IMPRESSION: Normal x-ray examination of the chest. Electronically Signed: Re Sheppard MD at 14:01 EDT Tel , Service support ,
--- NOTE | 2018-05-01 12:51 | ED.DCSUM_ITS ---
- ER Visit Summary Date of Service: 05/01/18 Chief Complaint: Chest pain History of Present Illness: The patient is a 67 M with a history of nail patella syndrome presents with 15-20 minutes of chest pain that has resolved. It started 1 hour ago. It is substernal described that stabbing. No radiation to the back appearing no tearing sensation. No pleuritic component or PE risk factors. Physical Examination: Not appear in acute distress. Moist mucous membranes, no obvious facial deformity No C-spine tenderness supple neck. Regular rate and rhythm without any obvious murmurs Clear lungs bilaterally speaking in full sentences without any obvious respiratory distress Abdomen soft and nontender no guarding or rebound Moves all extremities without any difficulty or pain. Skin does not show any obvious rashes or lesions, no trauma. Alert oriented ?3 with no gross focal deficit Emergency Department Course and Treatment: Treatment Plan: [] Disposition: [] Impression: [] This note was generated with [employer] dictation software. It may contain incorrect words, spelling, and punctuation that were not noted in review of the chart prior to signing ED Disposition - Plan for ED Patient: Chief Complaint: Chest Pain Referrals: Care Physician,No Primary [Primary Care Provider] -
[2018-05-01] MEDS: Aspirin 81 MG TAB.CHEW 324 MG PO (12:55)
[2018-05-01 13:04] LABS: Absolute Lymphocyte Count 1.95 X10^3/ul (0.83-4.51); Absolute Neutrophil Count 4.1 X10^3/uL (2.0-7.7); Basophil# 0.02 X10^3/uL; Basophil% 0.3 % (0-1); Eosinophil# 0.22 X10^3/uL; Eosinophils% 3.1 % (0-5); Hematocrit 38.2 % (40-54); Hemoglobin 13.1 g/dl (13.0-16.5); Lymphocyte # 1.95 X10^3/ul (4.0); Lymphocyte % 27.9 % (19-41); Mean Corp Hgb Conc 34.3 g/gl (32-36); Mean Corpuscular Volume 102.1 fL (80-94); Mean Platelet Vol. 11.6 fl (6.2-12.0); Monocyte# 0.68 X10^3/uL; Monocyte% 9.7 % (0-10); Neutrophil # 4.12 X10^3/uL (2.7-7.7); Neutrophil % 58.9 % (47-70); Platelet Count 275 K/mm3 (150-450); RBC Distribution Width CV 12.7 % (11.6-14.6); RBC Distribution Width SD 46.6 fl (35.1-43.9); Red Blood Count 3.74 M/mm3 (4.6-6.2)
[2018-05-01 13:05] LABS: POSITIVE COUNT NO; POSITIVE DIFFERENTIAL NO; POSITIVE MORPHOLOGY NO
[2018-05-01 13:19] LABS: Anion Gap 6 (5-15); BUN 14 mg/dL (7-18); BUN/Creat Ratio 12.3 RATIO (10-20); Calcium,Total 8.8 mg/dL (8.5-10.1); Chloride 110 mmol/L (98-107); Creatinine, Serum 1.14 mg/dL (0.70-1.30); EST Glomerular Filtration Rate 68 mL/min (>60); Est Glom Filt Rate - Afr Amer 82 mL/min (>60); Estimated Creatinine Clearance 62.88 ml/min; Glucose 97 mg/dL (74-106); Potassium 4.3 mmol/L (3.5-5.1); Sodium Level 141 mmol/L (136-145)
--- NOTE | 2018-05-01 13:57 | EKG12_ITS ---
Test Reason : CP ADMISSION Blood Pressure : / mmHG Vent. Rate : 061 BPM Atrial Rate : 061 BPM P-R Int : 138 ms QRS Dur : 074 ms QT Int : 406 ms P-R-T Axes : 058 -30 021 degrees QTc Int : 408 ms Normal sinus rhythm Left axis deviation Low voltage QRS Septal infarct , age undetermined, cannot be excluded Abnormal ECG Confirmed by CHERYL KELLOGG, BEN ([id number]), electronic news gathering editor GIGI PRASAD ([id number]) on 05/06/2018 8:20:06 AM Referred By: THADDEUS Confirmed By:BEN LUNA MD
--- NOTE | 2018-05-01 14:08 | NURSING ---
CALLED [facility] IN [place]. MARIANO TO SEND PT.
--- NOTE | 2018-05-01 14:38 | PCM.HP.STD ---
<Nadeem Johnson - Last Filed: 05/01/18 14:38> Problem List (1) Chest pain Status: Acute (2) Cardiomyopathy Status: Chronic (3) HLD (hyperlipidemia) Status: Chronic (4) Tobacco use Status: Chronic (5) Dyslipidemia Status: Chronic History of Present Illness Date of Admission: 05/01/18 Chief Complaint: chest pain The patient is a 67 year old M with a hx of cardiomyopathy, pt of Dr. Conroy, schizophrenia, who presented to the ER with chest pain. This began at about 1130 after he smoked a cigarette, and lasted about 20 minutes. It spontaneously resolved, however it did recur. He describes it as left sided anterior chest pain that feels like stabbing. No associated SOB. Non radiating. No nausea or vomiting. He did have some dizziness. He received nitro with some relief. He has been to the ER with chest pain 2 other times this year. Currently no further chest pain. [] Past Medical History Past Medical History (Chronic Problems): Chronic Problems Cardiomyopathy (Chronic) HLD (hyperlipidemia) (Chronic) Tobacco use (Chronic) Dyslipidemia (Chronic) Allergies amoxicillin Allergy (Verified 05/01/18 12:27) Other cefaclor Allergy (Verified 05/01/18 12:27) Unknown indomethacin [From Indocin] Allergy (Verified 05/01/18 12:27) Unknown naproxen sodium [From Aleve] Allergy (Verified 05/01/18 12:27) Hives Penicillins Allergy (Verified 05/01/18 12:27) Anaphylaxis Home Medications: Ambulatory Orders Medication Instructions Recorded Carvedilol [Coreg] 6.25 mg PO BID 12/28/16 Dicyclomine HCl 20 mg PO TID 12/28/16 Fluoxetine HCl 40 mg PO DAILY 12/28/16 Lisinopril [Zestril] 2.5 mg PO DAILY 12/28/16 Aspirin 81 mg PO DAILY 01/24/18 Atorvastatin Calcium [Atorvastatin 20 mg PO DAILY 01/24/18 Calcium] Ergocalciferol [Vitamin D] 50,000 unit PO WE 01/24/18 Omeprazole [Omeprazole] 40 mg PO DAILY 01/24/18 Docusate Sodium [Colace] 100 mg PO DAILY 02/15/18 Dorzolamide HCl/Timolol Maleat 1 drop LEFT EYE BID 02/15/18 [Cosopt Eye Drops] [place]-3 Acid Ethyl Esters [Lovaza] 1 gm PO BID 02/15/18 Travoprost 0.004% [Travatan-Z 1 drop LEFT EYE DAILY 02/15/18 0.004% Eye Drop] Calcium Carbonate [Antacid] 500 mg PO PRN PRN 05/01/18 Gabapentin [Neurontin] 100 mg PO BID 05/01/18 Gabapentin [Neurontin] 300 mg PO QHS 05/01/18 Ibuprofen [Ibu] 800 mg PO Q8H PRN 05/01/18 Nitroglycerin 0.4 mg SL PRN PRN 05/01/18 Surgical History: appendectomy, herniorrhaphy, tonsillectomy Lives: Alone Smoking Status: Current every day smoker - *Family History Maternal History Items: Unknown Paternal History Items: Unknown Review of Systems Constitutional: Denies: Chills, Fever, Weight Change HEENT: Denies: Head Aches, Sinus Congestion, Sinus Drainage Cardiovascular: Reports: Chest Pain, Light Headedness. Denies: Chest Pressure, Chest Tightness, Edema, Heaviness, Palpitations, Syncope Respiratory: Denies: Cough, Shortness of breath at rest, Sputum production Gastrointestinal: Denies: Abdominal Pain, Nausea, Vomiting Genitourinary: Denies: Dysuria Musculoskeletal: Denies: Joint Pain, Joint Tenderness Skin: Denies: Rash, Wounds Neurological: Denies: Numbness, Tingling, Focal weakness Psychiatric: Denies: Anxiety, Depression, Homicidal Ideations, Suicidal Ideations Hematologic/ Lymphatic: Denies: Easy Bruising, Easy Bleeding VTE Information - Inpt Only VTE Present on Admission: No VTE Mechan Device Prophylaxis: None VTE Pharm Prophylaxis ordered?: Yes - Physical Exam General: Alert, Oriented x3, Cooperative HEENT: Atraumatic, PERRLA, EOMI, Normocephalic Neck: Supple, No JVD, Negative Carotid Bruits Lungs: Clear to auscultation, Normal air movement Cardiovascular: Regular rate, No murmurs Abdomen: Bowel Sounds Present, Soft, Non Tender Extremities: No edema, Capillary Refill Less than 3 Seconds Skin: No rashes, No breakdown Musculoskeletal: No Tenderness to Palpation of Joints or Extremities Neurological: Cranial nerves II-XII grossly intact Psych/Mental Status: Normal Affect, Appropriate Vital Signs Temp Pulse Resp BP Pulse Ox 98.2 F 64 18 110/73 96 05/01/18 12:28 05/01/18 14:03 05/01/18 14:03 05/01/18 14:03 05/01/18 14:03 Oxygen Delivery Method Room Air Assessment/Plan All Active Problems Pancreatitis, acute (Acute) Chest pain (Acute) 1. Chest pain - 3rd presentation to er for this this year. Atypical. EKG neg. Trop neg. CXR neg. Cycle enzymes. Repeat EKG in AM. Obtain Stress test in AM. Continue coreg, lisinopril, aspirin. Pt of Dr. Pierson. VSS. Labs unremarkable. 2. Hx Cardiomyopathy - 2012 EF of 30% - check Echo. 3. HLD - statin 4. Schizophrenia - stable. Not on any antipsychotics DVT ppx: lovenox This patient was seen by Nadeem Johnson PA-C under the supervision of Doctor John Paul. <Terra Coker - Last Filed: 05/01/18 15:18> History of Present Illness The patient is a 67 year old M [] Past Medical History Allergies amoxicillin Allergy (Verified 05/01/18 12:27) Other cefaclor Allergy (Verified 05/01/18 12:27) Unknown indomethacin [From Indocin] Allergy (Verified 05/01/18 12:27) Unknown naproxen sodium [From Aleve] Allergy (Verified 05/01/18 12:27) Hives Penicillins Allergy (Verified 05/01/18 12:27) Anaphylaxis - Physical Exam Vital Signs Temp Pulse Resp BP Pulse Ox 98.5 F 66 16 111/64 97 05/01/18 15:02 05/01/18 15:02 05/01/18 15:02 05/01/18 15:02 05/01/18 15:02 Oxygen Delivery Method Room Air Weight: 80.4 kg Body Mass Index (BMI) 26.2 Assessment/Plan 67-year-old male with past medical history of schizophrenia, history of nonischemic cardiomyopathy, hypertension, hyperlipidemia who comes in with complaints of chest pain that started around 1130. Patient is a chronic smoker, follows up with Dr. Conroy. This chest pain is pointed, sharp, did not radiate, not associated with nausea or vomiting but with some lightheadedness. Denies any palpitations. Patient says the chest pain seemed to have gone away with 2 pills of nitroglycerin. Physical exam: GEN: Patient appears dishevelled, not pale, no jaundice, alert oriented ?3, answers questions appropriately CVS: Heart sounds 1 and 2 present, no added sounds RESP: Clinically clear to auscultation ABD: Bowel sounds was present, upper midline scar, appears full, soft, nontender, no palpable organs Extremities: No edema Vitals in the ED were negative. Labs were unremarkable EKG shows normal sinus rhythm, no acute ST-T changes Initial troponin is negative A/P Atypical chest pain Nonischemic cardiomyopathy, previous EF of 30% Hypertension Hyperlipidemia Schizophrenia Admit to PCU, monitor on telemetry, trend troponins, stress test in a.m., 2D echo, continue on aspirin, statin, beta-meron, nitro as needed, lisinopril Possible DC in a.m. if stress test is negative and no acute events present Code Visit OBSV E&M: 43130 Initial observation care L3
[2018-05-01] MEDS: Dicyclomine 10 MG Capsule 20 MG PO (16:25)
[2018-05-01] MEDS: Gabapentin 100 MG Capsule PO (16:41)
[2018-05-01] MEDS: Omega-3 Acid Ethyl Esters 1 GM Capsule PO (21:13)
[2018-05-01] MEDS: Carvedilol 6.25 MG Tablet PO (21:13)
[2018-05-01] MEDS: Dorzolamide HCL/Timolol 10 ml Bottle 1 DRP LEFT EYE (21:14)
[2018-05-01] MEDS: Latanoprost 0.005% 1 Bottle 1 DRP LEFT EYE (21:14)
[2018-05-01] MEDS: Gabapentin 300 MG Capsule PO (21:15)
[2018-05-02 02:34] VITALS: BP 127/66; PULSE 69; RESP 14; TEMP 37.1; O2SAT 97
[2018-05-02 03:00] VITALS: PULSE 65
[2018-05-02 05:46] VITALS: BP 106/60; PULSE 66; RESP 16; TEMP 36.8; O2SAT 97
[2018-05-02] MEDS: Aspirin 81 MG TAB.CHEW PO ×2 (05:50→11:12)
[2018-05-02 05:51] LABS: Absolute Lymphocyte Count 1.98 X10^3/ul (0.83-4.51); Absolute Neutrophil Count 4.5 X10^3/uL (2.0-7.7); Basophil# 0.02 X10^3/uL; Basophil% 0.3 % (0-1); Eosinophil# 0.24 X10^3/uL; Eosinophils% 3.3 % (0-5); Hematocrit 40.8 % (40-54); Hemoglobin 13.7 g/dl (13.0-16.5); Lymphocyte # 1.98 X10^3/ul (4.0); Mean Corp Hgb Conc 33.6 g/gl (32-36); Mean Corpuscular Hgb 34.5 pg (27.0-32.0); Mean Corpuscular Volume 102.8 fL (80-94); Mean Platelet Vol. 11.5 fl (6.2-12.0); Monocyte# 0.63 X10^3/uL; Monocyte% 8.6 % (0-10); Neutrophil # 4.45 X10^3/uL (2.7-7.7); Neutrophil % 60.7 % (47-70); Platelet Count 282 K/mm3 (150-450); RBC Distribution Width CV 13.2 % (11.6-14.6); RBC Distribution Width SD 50.1 fl (35.1-43.9); Red Blood Count 3.97 M/mm3 (4.6-6.2); White Blood Count 7.3 K/mm3 (4.4-11.0)
[2018-05-02 05:52] LABS: Prothrombin Time (Protime)PT. 13.3 SECONDS (11.7-14.9)
[2018-05-02 05:53] LABS: Partial Thromboplast Time 32.4 Seconds (24.1-36.2)
[2018-05-02 05:55] LABS: Anion Gap 8 (5-15); BUN 19 mg/dL (7-18); BUN/Creat Ratio 17.3 RATIO (10-20); Calcium,Total 8.6 mg/dL (8.5-10.1); Chloride 110 mmol/L (98-107); EST Glomerular Filtration Rate 71 mL/min (>60); Est Glom Filt Rate - Afr Amer 86 mL/min (>60); Estimated Creatinine Clearance 65.17 ml/min; Glucose 123 mg/dL (74-106); Potassium 4.4 mmol/L (3.5-5.1); Sodium Level 144 mmol/L (136-145)
--- NOTE | 2018-05-02 05:55 | EKG12_ITS ---
Test Reason : AM Blood Pressure : / mmHG Vent. Rate : 071 BPM Atrial Rate : 071 BPM P-R Int : 138 ms QRS Dur : 070 ms QT Int : 386 ms P-R-T Axes : 070 -34 -02 degrees QTc Int : 419 ms Normal sinus rhythm Left axis deviation Septal infarct , age undetermined Abnormal ECG Confirmed by CHERYL KELLOGG, BEN ([id number]), science editor GIGI PRASAD ([id number]) on 05/05/2018 12:48:47 PM Referred By: THADDEUS Confirmed By:BEN LUNA MD
[2018-05-02 06:10] LABS: POSITIVE COUNT NO; POSITIVE DIFFERENTIAL NO; POSITIVE MORPHOLOGY NO
[2018-05-02 09:00] VITALS: BP 113/60; PULSE 66; PULSE 78; RESP 16; TEMP 36.8; O2SAT 98
[2018-05-02 09:09] VITALS: BP 113/60; PULSE 66; RESP 16; TEMP 36.8; O2SAT 98
[2018-05-02] MEDS: Pantoprazole Sodium 40 MG Tablet PO (11:10)
[2018-05-02] MEDS: Dicyclomine 10 MG Capsule 20 MG PO (11:11)
[2018-05-02] MEDS: Omega-3 Acid Ethyl Esters 1 GM Capsule PO (11:11)
[2018-05-02] MEDS: Gabapentin 100 MG Capsule PO (11:11)
[2018-05-02] MEDS: FLUoxetine 20 MG Capsule 40 MG PO (11:11)
[2018-05-02] MEDS: Docusate Sodium 100 MG Capsule PO (11:12)
[2018-05-02] MEDS: Lisinopril 2.5 MG Tablet PO (11:12)
[2018-05-02] MEDS: Carvedilol 6.25 MG Tablet PO (11:12)
[2018-05-02] MEDS: Dorzolamide HCL/Timolol 10 ml Bottle 1 DRP LEFT EYE (11:13)
[2018-05-02] MEDS: Atorvastatin Calcium 20 MG Tablet PO (11:14)
[2018-05-02] MEDS: Enoxaparin 40 MG/0.4 ML Syringe SC (11:14)
--- NOTE | 2018-05-02 11:56 | STRESSREP ---
Stress Test Report Pharmacologic myocardial perfusion stress test. 67-year-old man with a history of cardiomyopathy who presents with chest pain. Stress protocol: Resting EKG demonstrates sinus rhythm with a rate of 63 bpm poor R-wave progression suggestive of previous anterior infarct is present resting blood pressure is 130/80 mmHg. 0.4 mg of regadenoson was infused per usual protocol followed by rapid intravenous saline flush injection continuous EKG monitoring was performed. Patient maintained sinus rhythm throughout the recording. At rest there were no ST or T-wave changes noted suggest abnormal flow reserve at peak infusion no ST or T-wave changes were noted suggest abnormal flow reserve. The maximum heart rate was 93 bpm which was 60% maximum predicted heart rate. The resting blood pressure is 130/80 mmHg with a final blood pressure 118/62 mmHg. Myocardial perfusion protocol. 11.8 mCi of technetium 99m sestamibi was injected at rest. 0.4 mg of regadenoson was infused per usual protocol peak infusion 33.4 mCi of technetium 99m sestamibi was injected stress images were obtained stress and rest images were reconstructed and compared in the short axis vertical long and horizontal long axis. Gated images were also obtained pre- Perfusion SPECT analysis. Review of the stress images demonstrate a medium-sized defect involving the mid anterior wall apex and inferior apical wall. The distal anterior septum is also involved with the perfusion defect. The resting images demonstrate a similar patent suggesting a previous anterior infarct involving the apex and distal anteroseptal wall. No ischemia is noted. Gated SPECT analysis: The gated ejection fraction is noted to be 48% with severe hypokinesis to akinesis of the apex. Conclusion: Pharmacologic myocardial perfusion stress test with evidence of previous anterior apical infarct. No ischemia noted.
--- NOTE | 2018-05-02 13:39 | DCINST_ITS ---
- Discharge Diagnoses Current Active Problems: Current Active and Chronic Problems Cardiomyopathy (Chronic) HLD (hyperlipidemia) (Chronic) You will use the following diet at home:: Cardiac Your food should be the consistency of: Regular Your liquids should be the consistency of: Regular/Thin Discharge Activity: Return to Normal Activity, - Allergies/Adverse Reactions: Allergies amoxicillin Allergy (Verified 05/01/18 12:27) Other cefaclor Allergy (Verified 05/01/18 12:27) Unknown indomethacin [From Indocin] Allergy (Verified 05/01/18 12:27) Unknown naproxen sodium [From Aleve] Allergy (Verified 05/01/18 12:27) Hives Penicillins Allergy (Verified 05/01/18 12:27) Anaphylaxis Medications to take at Discharge Carvedilol [Coreg] 6.25 mg PO BID 12/28/16 Dicyclomine HCl 20 mg PO TID 12/28/16 Fluoxetine HCl 40 mg PO DAILY 12/28/16 Lisinopril [Zestril] 2.5 mg PO DAILY 12/28/16 Aspirin 81 mg PO DAILY 01/24/18 Atorvastatin Calcium 20 mg PO DAILY 01/24/18 Ergocalciferol [Vitamin D] 50,000 unit PO WE 01/24/18 Omeprazole 40 mg PO DAILY 01/24/18 Docusate Sodium [Colace] 100 mg PO DAILY 02/15/18 Dorzolamide HCl/Timolol Maleat [Cosopt Eye Drops] 1 drop LEFT EYE BID 02/15/18 [place]-3 Acid Ethyl Esters [Lovaza] 1 gm PO BID 02/15/18 Travoprost 0.004% [Travatan-Z 0.004% Eye Drop] 1 drop LEFT EYE DAILY 02/15/18 Calcium Carbonate [Antacid] 500 mg PO PRN PRN 05/01/18 Gabapentin [Neurontin] 100 mg PO BID 05/01/18 Gabapentin [Neurontin] 300 mg PO QHS 05/01/18 Nitroglycerin 0.4 mg SL PRN PRN 05/01/18 Acetaminophen [Tylenol Tablet] 650 mg PO Q6H PRN PRN tablet 05/02/18 Orders to be completed after discharge: Echo Complete W/ Contrast [ECHO] Time Frame: 1 Day, Location: None Selected Primary Care Physician: Care Physician,No Primary [Primary Care Provider] - Please follow up with your Primary Care Physician in: 1-2 weeks Test Results: Test results from this visit will be discussed in further detail at your follow- up appointment, if applicable. Please Follow Up With: Amari Pierson MD When: 1-2 weeks Proposed Discharge Date: 05/02/18
--- NOTE | 2018-05-02 13:41 | PCM.DC.SUM ---
<Nadeem Johnson - Last Filed: 05/02/18 13:41> Discharge Date and Diagnosis Date of Admission: 05/01/18 Date of Discharge: 05/02/18 - Primary Discharge Diagnosis Chest pain - musculoskeletal Hx Nonischemic Cardiomyopathy Schizophrenia HLD Nicotine abuse HTN - Secondary Discharge Diagnosis Chronic Problems Cardiomyopathy (Chronic) HLD (hyperlipidemia) (Chronic) Tobacco use (Chronic) Dyslipidemia (Chronic) Hospital Course and Treatment Imaging Results: 05/02/18 05:55 Nuclear Stress Test - Chemical [NM] AM (NON MEDS) Conclusion: Pharmacologic myocardial perfusion stress test with evidence of previous anterior apical infarct. No ischemia noted. RAD/Chest 1 View (Portable) IMPRESSION: Normal x-ray examination of the chest. Operations: None Procedures: Stress test Summary of Care Provided: Physical exam on day of discharge: General: Resting comfortably NAD Psych: A/Ox3 normal affect HEENT: PEARRLA AT NC Neck: Supple NT CV: RRR no m/t/r/g/h Resp: CTA Abd: [id number] Soft NT no guarding or rigidity Ext: DP2+= no edema Skin: W/D normal turgor Lymph/Heme: No active bleeding or adenopathy Neuro: CN2-12 intact Hospital course: The patient is a 67 year old M with a hx of nonischemic cardiomyopathy EF of 30% per last echo, htn, hld, schizophrenia, who presented to the ER with chief complaint of episodic chest pain lasting about 10 minutes per episode, left sided, reproducible with palpation. He had presented to the ER with multiple episodes of chest pain this year. He had negative EKG, negative Troponin, negative CXR. He was admitted to the PCU on tele for cardiac workup. He underwent a stress test the following day which was negative. No events on tele. Negative troponin. He continued to have CP only when pushing on his chest wall on the left side. It was felt that He was discharged home in stable condition. We did advise that he have an echocardiogram as an outpatient given his hx of cardiomyopathy. He follow with Dr. Pierson for cardiology. He will need to follow up with his senior policy advisor and PCP. Also note, his case was discussed with social workers as he has had multiple presentations to the emergency room is here for pain and psychiatric issues, in order to come up with a plan of care for the future so that unnecessary presentations can be avoided. This patient was seen by Nadeem Johnson PA-C under the supervision of Doctor Fawn. [] Discharge Diet: Low fat/ Low Cholesterol, 2000 mg Sodium Diet Discharge Activity: Return to Normal Activity, - Home Medications: Medications to take at Discharge Carvedilol [Coreg] 6.25 mg PO BID 12/28/16 Dicyclomine HCl 20 mg PO TID 12/28/16 Fluoxetine HCl 40 mg PO DAILY 12/28/16 Lisinopril [Zestril] 2.5 mg PO DAILY 12/28/16 Aspirin 81 mg PO DAILY 01/24/18 Atorvastatin Calcium 20 mg PO DAILY 01/24/18 Ergocalciferol [Vitamin D] 50,000 unit PO WE 01/24/18 Omeprazole 40 mg PO DAILY 01/24/18 Docusate Sodium [Colace] 100 mg PO DAILY 02/15/18 Dorzolamide HCl/Timolol Maleat [Cosopt Eye Drops] 1 drop LEFT EYE BID 02/15/18 [place]-3 Acid Ethyl Esters [Lovaza] 1 gm PO BID 02/15/18 Travoprost 0.004% [Travatan-Z 0.004% Eye Drop] 1 drop LEFT EYE DAILY 02/15/18 Calcium Carbonate [Antacid] 500 mg PO PRN PRN 05/01/18 Gabapentin [Neurontin] 100 mg PO BID 05/01/18 Gabapentin [Neurontin] 300 mg PO QHS 05/01/18 Nitroglycerin 0.4 mg SL PRN PRN 05/01/18 Acetaminophen [Tylenol Tablet] 650 mg PO Q6H PRN PRN tablet 05/02/18 Other Amb Orders: Echo Complete W/ Contrast [ECHO] Time Frame: 1 Day, Location: None Selected Primary Care Physician: Care Physician,No Primary [Primary Care Provider] - Please follow up with your Primary Care Physician in: 1-2 weeks Please Follow Up With: Amari Pierson MD When: 1-2 weeks Disposition: Home Minutes spent on discharge:: 35 Patient Condition:: Stable Medical Necessity - Tobacco Use Smoking Status: Current every day smoker Meaningful Use Info Meaningful Use Diagnoses (Choose all that apply): None applicable <Pascale Augustine - Last Filed: 05/02/18 14:14> Discharge Date and Diagnosis - Secondary Discharge Diagnosis Chronic Problems Cardiomyopathy (Chronic) HLD (hyperlipidemia) (Chronic) Tobacco use (Chronic) Dyslipidemia (Chronic) Hospital Course and Treatment Imaging Results: 05/02/18 05:55 Nuclear Stress Test - Chemical [NM] AM (NON MEDS) Summary of Care Provided: Patient seen by Nadeem Johnson PA-C under my supervision The patient is a 67 year old M admitted with a complaint of episodic chest pain. EKG, troponins and CXR were negative. he had a stress test on 05/02/18 which showed evidence of old anterior infarct. EF was 48% per stress test. previous EF is documented to be ~ 30%, with his history of nonischemic cardiomyopathy. He remained stable and was discharged home on 05.02.18, to follow up with his primary senior policy advisor, Dr Pierson, in one week. He is to continue taking aspirin, atorvastatin, carvedilol and lisinopril. Patient was seen and examined prior to discharge. Agree with Nadeem Johnson PA-C's note and assessment and plan.[] Code Visit Inpatient E&M: 58784 Disch Hosp
--- NOTE | 2018-05-02 13:53 | DS.PCM_ITS ---
<Nadeem Johnson - Last Filed: 05/02/18 13:41> Discharge Date and Diagnosis Date of Admission: 05/01/18 Date of Discharge: 05/02/18 - Primary Discharge Diagnosis Chest pain - musculoskeletal Hx Nonischemic Cardiomyopathy Schizophrenia HLD Nicotine abuse HTN - Secondary Discharge Diagnosis Chronic Problems Cardiomyopathy (Chronic) HLD (hyperlipidemia) (Chronic) Tobacco use (Chronic) Dyslipidemia (Chronic) Hospital Course and Treatment Imaging Results: 05/02/18 05:55 Nuclear Stress Test - Chemical [NM] AM (NON MEDS) Conclusion: Pharmacologic myocardial perfusion stress test with evidence of previous anterior apical infarct. No ischemia noted. RAD/Chest 1 View (Portable) IMPRESSION: Normal x-ray examination of the chest. Operations: None Procedures: Stress test Summary of Care Provided: Physical exam on day of discharge: General: Resting comfortably NAD Psych: A/Ox3 normal affect HEENT: PEARRLA AT NC Neck: Supple NT CV: RRR no m/t/r/g/h Resp: CTA Abd: [id number] Soft NT no guarding or rigidity Ext: DP2+= no edema Skin: W/D normal turgor Lymph/Heme: No active bleeding or adenopathy Neuro: CN2-12 intact Hospital course: The patient is a 67 year old M with a hx of nonischemic cardiomyopathy EF of 30 % per last echo, htn, hld, schizophrenia, who presented to the ER with chief complaint of episodic chest pain lasting about 10 minutes per episode, left sided, reproducible with palpation. He had presented to the ER with multiple episodes of chest pain this year. He had negative EKG, negative Troponin, negative CXR. He was admitted to the PCU on tele for cardiac workup. He underwent a stress test the following day which was negative. No events on tele. Negative troponin. He continued to have CP only when pushing on his chest wall on the left side. It was felt that He was discharged home in stable condition. We did advise that he have an echocardiogram as an outpatient given his hx of cardiomyopathy. He follow with Dr. Pierson for cardiology. He will need to follow up with his mechanical technician and PCP. Also note, his case was discussed with social workers as he has had multiple presentations to the emergency room is here for pain and psychiatric issues, in order to come up with a plan of care for the future so that unnecessary presentations can be avoided. This patient was seen by Nadeem Johnson PA-C under the supervision of Doctor Fawn. [] Discharge Diet: Low fat/ Low Cholesterol, 2000 mg Sodium Diet Discharge Activity: Return to Normal Activity, - Home Medications: Medications to take at Discharge Carvedilol [Coreg] 6.25 mg PO BID 12/28/16 Dicyclomine HCl 20 mg PO TID 12/28/16 Fluoxetine HCl 40 mg PO DAILY 12/28/16 Lisinopril [Zestril] 2.5 mg PO DAILY 12/28/16 Aspirin 81 mg PO DAILY 01/24/18 Atorvastatin Calcium 20 mg PO DAILY 01/24/18 Ergocalciferol [Vitamin D] 50,000 unit PO WE 01/24/18 Omeprazole 40 mg PO DAILY 01/24/18 Docusate Sodium [Colace] 100 mg PO DAILY 02/15/18 Dorzolamide HCl/Timolol Maleat [Cosopt Eye Drops] 1 drop LEFT EYE BID 02/15/18 [place]-3 Acid Ethyl Esters [Lovaza] 1 gm PO BID 02/15/18 Travoprost 0.004% [Travatan-Z 0.004% Eye Drop] 1 drop LEFT EYE DAILY 02/15/18 Calcium Carbonate [Antacid] 500 mg PO PRN PRN 05/01/18 Gabapentin [Neurontin] 100 mg PO BID 05/01/18 Gabapentin [Neurontin] 300 mg PO QHS 05/01/18 Nitroglycerin 0.4 mg SL PRN PRN 05/01/18 Acetaminophen [Tylenol Tablet] 650 mg PO Q6H PRN PRN tablet 05/02/18 Other Amb Orders: Echo Complete W/ Contrast [ECHO] Time Frame: 1 Day, Location: None Selected Primary Care Physician: Care Physician,No Primary [Primary Care Provider] - Please follow up with your Primary Care Physician in: 1-2 weeks Please Follow Up With: Amari Pierson MD When: 1-2 weeks Disposition: Home Minutes spent on discharge:: 35 Patient Condition:: Stable Medical Necessity - Tobacco Use Smoking Status: Current every day smoker Meaningful Use Info Meaningful Use Diagnoses (Choose all that apply): None applicable <Pascale Augustine - Last Filed: 05/02/18 14:14> Discharge Date and Diagnosis - Secondary Discharge Diagnosis Chronic Problems Cardiomyopathy (Chronic) HLD (hyperlipidemia) (Chronic) Tobacco use (Chronic) Dyslipidemia (Chronic) Hospital Course and Treatment Imaging Results: 05/02/18 05:55 Nuclear Stress Test - Chemical [NM] AM (NON MEDS) Summary of Care Provided: Patient seen by Nadeem Johnson PA-C under my supervision The patient is a 67 year old M admitted with a complaint of episodic chest pain. EKG, troponins and CXR were negative. he had a stress test on 05/02/18 which showed evidence of old anterior infarct. EF was 48% per stress test. previous EF is documented to be ~ 30%, with his history of nonischemic cardiomyopathy. He remained stable and was discharged home on 05.02.18, to follow up with his primary mechanical technician, Dr Pierson, in one week. He is to continue taking aspirin, atorvastatin, carvedilol and lisinopril. Patient was seen and examined prior to discharge. Agree with Nadeem Johnson PA-C's note and assessment and plan.[] Code Visit Inpatient E&M: 73329 Disch Hosp
[2018-05-02 14:30] VITALS: BP 115/68; PULSE 70; RESP 16; TEMP 36.8; O2SAT 98
== END 2018-05-02 13:34 | disposition home or self-care (01) ==
LOC: ED 13:46 → PCU 14:10
PROVIDERS: Admitting Provider Internal Medicine; Emergency Provider Emergency Medicine; Visit Provider Student in an Organized Health Care Education/Training Program
DX: R07.89 Other chest pain (principal); Q87.2 Congenital malformation syndromes predominantly involving limbs; E78.5 Hyperlipidemia, unspecified; I42.9 Cardiomyopathy, unspecified; Z79.899 Other long term (current) drug therapy; Z79.82 Long term (current) use of aspirin; F17.210 Nicotine dependence, cigarettes, uncomplicated; R42 Dizziness and giddiness; I10 Essential (primary) hypertension
CPT/HCPCS: 36415; 71045; 78452; 80048; 84484; 85025; 85610; 85730; 93005; 93017; 96372; 99218; 99285; A9500; A4216; G0378; J2785

== ENCOUNTER 2018-05-09 15:28 | Emergency (ER) | payer MEDICARE, MEDICAID, SELFPAY ==
[2018-05-09 15:32] VITALS: BP 101/60; PULSE 85; RESP 18; TEMP 37.6; O2SAT 96; BMI 26.7
--- NOTE | 2018-05-09 15:51 | RAD_ITS ---
STUDY: X-RAY CHEST REASON FOR EXAM: Male, 67 years old. Fever. TECHNIQUE: AP portable COMPARISON: May 01, 2018 FINDINGS: There is a right basilar patchy opacity. There is mild elevation of the right hemidiaphragm. Normal size heart. Normal mediastinum and claude. Normal visualized pulmonary arteries. Normal visualized aortic arch and descending thoracic aorta. Normal visualized thoracic spine. Normal visualized ribs, clavicles, and shoulders. There is no demonstrated abnormality of the visualized soft tissue structures of the upper abdomen. RAD/Chest 1 View (Portable) IMPRESSION: Right basilar patchy opacity may reflect underlying atelectasis and/or evolving pneumonia. Electronically Signed: Amanda Trimble MD at 16:21 EDT Tel , Service support ,
[2018-05-09] MEDS: 0.9% Normal Saline 1,000 ML 1000 ML IV (16:53)
[2018-05-09 17:01] LABS: Absolute Neutrophil Count 8.3 X10^3/uL (2.0-7.7); Basophil# 0.02 X10^3/uL; Basophil% 0.2 % (0-1); Eosinophil# 0.13 X10^3/uL; Eosinophils% 1.3 % (0-5); Hematocrit 40.7 % (40-54); Hemoglobin 13.4 g/dl (13.0-16.5); Lymphocyte % 7.2 % (19-41); Mean Corp Hgb Conc 32.9 g/gl (32-36); Mean Corpuscular Hgb 33.8 pg (27.0-32.0); Mean Corpuscular Volume 102.8 fL (80-94); Mean Platelet Vol. 11.3 fl (6.2-12.0); Monocyte# 0.56 X10^3/uL; Monocyte% 5.8 % (0-10); Neutrophil # 8.25 X10^3/uL (2.7-7.7); Neutrophil % 85.3 % (47-70); POSITIVE COUNT NO; POSITIVE DIFFERENTIAL NO; POSITIVE MORPHOLOGY NO; Platelet Count 233 K/mm3 (150-450); RBC Distribution Width CV 13.2 % (11.6-14.6); RBC Distribution Width SD 49.7 fl (35.1-43.9); Red Blood Count 3.96 M/mm3 (4.6-6.2); White Blood Count 9.7 K/mm3 (4.4-11.0)
[2018-05-09 17:25] LABS: ALB/GLOB Ratio 1.1 RATIO (0.9-2.4); AST(SGOT) 13 U/L (15-37); Alanine Aminotransfer ALT/SGPT 21 U/L (16-61); Albumin, Serum 3.9 g/dL (3.2-5.0); Alkaline Phosphatase 46 U/L (45-117); Anion Gap 6 (5-15); BUN 17 mg/dL (7-18); BUN/Creat Ratio 13.7 RATIO (10-20); Calcium,Total 8.7 mg/dL (8.5-10.1); Chloride 109 mmol/L (98-107); Creatinine, Serum 1.24 mg/dL (0.70-1.30); EST Glomerular Filtration Rate 62 mL/min (>60); Est Glom Filt Rate - Afr Amer 75 mL/min (>60); Estimated Creatinine Clearance 57.81 ml/min; Globulin 3.6 g/dL (2.2-4.2); Glucose 134 mg/dL (74-106); Potassium 3.9 mmol/L (3.5-5.1); Protein, Total 7.5 g/dL (6.4-8.2); Sodium Level 141 mmol/L (136-145)
[2018-05-09 17:28] LABS: Bacteria 0 SEEN /hpf (None Seen); Mucous, Urine 0 SEEN /hpf (<or=2+); Red Blood Cells-Urine 0 SEEN /hpf (0-5); Squamous Epithelial Cells - UA 0 SEEN /hpf (0-5); White Blood Cells 0 SEEN /hpf (0-5)
[2018-05-09 17:29] LABS: Color, Urine Yellow (Yellow); Glucose, Dipstick Normal (Normal); Ketone-Dipstick Negative (Negative); Leukocyte Esterase-Dipstick Negative /ul (Negative); Nitrite-Dipstick Negative (Negative); Occult Blood-Urine 25 /ul (Negative); Protein-Dipstick Negative (Negative); Urine Bilirubin Dipstick Negative (Negative); Urine Clarity Clear (Clear); Urine Urobilinogen Normal (Normal)
[2018-05-09 17:31] LABS: Lactic Acid 1.3 mmol/L (0.4-2.0)
[2018-05-09 17:46] VITALS: PULSE 84; RESP 28; O2SAT 99
--- NOTE | 2018-05-09 18:50 | ED.DCSUM_ITS ---
- ER Visit Summary Date of Service: 05/09/18 Chief Complaint: Patient feels lightheaded and has a fever. History of Present Illness: The patient is a 67 M with above complaints for 2 days. He has a chronic cough which is slightly worse. No miss of breath, no abdominal pain. No urinary tract symptoms. No headache or neck pain. Physical Examination: Not appear in acute distress. Moist mucous membranes, no obvious facial deformity No C-spine tenderness supple neck. Regular rate and rhythm without any obvious murmurs Clear lungs bilaterally speaking in full sentences without any obvious respiratory distress Abdomen soft and nontender no guarding or rebound Moves all extremities without any difficulty or pain. Skin does not show any obvious rashes or lesions, no trauma. Alert oriented ?3 with no gross focal deficit Emergency Department Course and Treatment: Patient is found to have a small pneumonia this may account for his symptoms. He was also dehydrated. I will discharge him with antibiotics. If he feels worse he needs to return. At this time he is quite stable with an unremarkable otherwise workup. Discharge stable condition Impression: [Dehydration Pneumonia] This note was generated with [employer] dictation software. It may contain incorrect words, spelling, and punctuation that were not noted in review of the chart prior to signing ED Disposition - Plan for ED Patient: Disposition: Home or Assisted Living Chief Complaint: General Illness Instructions: What Is Pneumonia? Prescriptions: Azithromycin 250 mg PO DAILY #6 tab Referrals: Care Physician,No Primary [Primary Care Provider] -
== END 2018-05-09 19:06 | disposition home or self-care (01) ==
PROVIDERS: Emergency Provider Emergency Medicine
DX: E86.0 Dehydration (principal); J18.9 Pneumonia, unspecified organism
CPT/HCPCS: 71045; 80053; 81001; 83605; 85025; 87040; 99285; J7030; A4216

== ENCOUNTER 2018-06-17 18:58 | Emergency (ER) | payer MEDICARE, MEDICAID, SELFPAY ==
[2018-06-17 18:59] VITALS: BP 93/59; PULSE 66; RESP 16; TEMP 37; O2SAT 98; BMI 26.7
--- NOTE | 2018-06-17 19:58 | ED.DCSUM_ITS ---
- ER Visit Summary Date of Service: 06/17/18 Chief Complaint: Patient left prior to being seen. History of Present Illness: The patient is a 67 M [] Physical Examination: [] Test Results: [] Emergency Department Course and Treatment: [] Treatment Plan: [] Disposition: [] Impression: Patient left prior to being seen. No ER physician charge This note was generated with [employer] dictation software. It may contain incorrect words, spelling, and punctuation that were not noted in review of the chart prior to signing ED Disposition - Plan for ED Patient: Chief Complaint: Back Referrals: Care Physician,No Primary [Primary Care Provider] -
--- NOTE | 2018-06-17 20:00 | ED.RN ---
WHEN ASKED IF THE PT COULD GIVE A URINE SPECIMEN,HE JUST LOOKED AT THIS NURSE IF HE DID NOT UNDERSTAND.EDUCATED THE PT ON WHY A URINE SPECIMEN IS NEEDED AND HE CONTINUED TO STARE.ALSO ASKED THE PT IF HE COULD PUT ON A HOSPITAL GOWN,PT RESPONDED THAT IT'S NOT GONNA HAPPEN.PT STATED HE WAS LEAVING.PT LWBS.
== END 2018-06-17 20:00 | disposition left against medical advice (07) ==
LOC: ED 20:29
PROVIDERS: Emergency Provider Emergency Medicine
DX: M54.9 Dorsalgia, unspecified (principal)
CPT/HCPCS: 99283

== ENCOUNTER 2018-07-23 16:32 | Emergency (ER) | payer MEDICARE, MEDICAID, SELFPAY ==
[2018-07-23 16:36] VITALS: BP 131/72; PULSE 70; RESP 15; TEMP 37; O2SAT 97; BMI 26.6
--- NOTE | 2018-07-23 16:53 | RAD_ITS ---
STUDY: X-RAY CHEST REASON FOR EXAM: Male, 67 years old. Chest and back pain TECHNIQUE: Single AP portable view of the chest. # of Images: 1 COMPARISON: 05/09/2018 FINDINGS: The lungs are clear and expanded. There is no demonstrated pleural abnormality. Normal size heart. Normal mediastinum and claude. Normal visualized pulmonary arteries. Normal visualized aortic arch and descending thoracic aorta. Normal visualized thoracic spine. Normal visualized ribs, clavicles, and shoulders. There is no demonstrated abnormality of the visualized soft tissue structures of the upper abdomen. RAD/Chest 1 View (Portable) IMPRESSION: Normal x-ray examination of the chest. Electronically Signed: Preston Orona DO at 17:14 EDT Tel , Service support ,
--- NOTE | 2018-07-23 16:53 | EKG12_ITS ---
Test Reason : CP Blood Pressure : / mmHG Vent. Rate : 068 BPM Atrial Rate : 068 BPM P-R Int : 140 ms QRS Dur : 076 ms QT Int : 390 ms P-R-T Axes : 064 -28 016 degrees QTc Int : 414 ms Normal sinus rhythm Leftward [place] Low voltage QRS (limb leads) Septal infarct (cited on or before 28-DEC-2016) Abnormal ECG Confirmed by CHERYL KELLOGG, BEN ([id number]), editor index MITA BOOTH ([id number]) on 07/26/2018 11:07:59 AM Referred By: [place] Confirmed By:BEN LUNA MD
--- NOTE | 2018-07-23 16:56 | ED.DCSUM_ITS ---
- ER Visit Summary Date of Service: 07/23/18 Chief Complaint: Chest pain, left lower back pain History of Present Illness: The patient is a 67 M who presents with the above symptoms. He states that the chest pain started today. He states that he did not get his heart medicine today so now he has pain. It is in the left lower part of the chest. It does not radiate. He denies any shortness of breath. He does have a history of coronary disease. He does see Dr. Conroy. He complains of pain in the left lower back. He states that this also got worse today but has had this pain for a while. He took nothing for this at home. Physical Examination: Vital signs reviewed. HEENT exam unremarkable. Heart is regular rate and rhythm without murmurs. Lungs are clear to auscultation. His chest is point tender where he points to where his pain is on the left lower part of the chest. Abdomen is soft and nontender. He has a left lumbar paraspinal tenderness to palpation. Extremities reveal no edema. Peripheral pulses are equal. Skin exam normal. Neurologic exam normal. Test Results: EKG is normal sinus rhythm with no ST changes. Chest x-ray normal. Laboratory studies are unremarkable Emergency Department Course and Treatment: She was given aspirin and morphine. Patient has no evidence of any coronary disease. He likely has a strain of his low back. Patient will be treated with Zanaflex. He will follow-up with his primary care physician. Treatment Plan: [] Disposition: Discharge Impression: Chest pain, lower back pain This note was generated with [employer] dictation software. It may contain incorrect words, spelling, and punctuation that were not noted in review of the chart prior to signing ED Disposition - Plan for ED Patient: Chief Complaint: Back Referrals: Care Physician,No Primary [NON-STAFF] -
[2018-07-23 16:58] VITALS: O2SAT 97
[2018-07-23 17:17] LABS: Absolute Lymphocyte Count 1.89 X10^3/ul (0.83-4.51); Absolute Neutrophil Count 4.7 X10^3/uL (2.0-7.7); Basophil# 0.02 X10^3/uL; Basophil% 0.3 % (0-1); Eosinophil# 0.19 X10^3/uL; Eosinophils% 2.6 % (0-5); Hematocrit 37.9 % (40-54); Hemoglobin 12.7 g/dl (13.0-16.5); Lymphocyte # 1.89 X10^3/ul (4.0); Lymphocyte % 25.7 % (19-41); Mean Corp Hgb Conc 33.5 g/gl (32-36); Mean Corpuscular Hgb 34.6 pg (27.0-32.0); Mean Corpuscular Volume 103.3 fL (80-94); Mean Platelet Vol. 10.5 fl (6.2-12.0); Monocyte# 0.58 X10^3/uL; Monocyte% 7.9 % (0-10); Neutrophil # 4.67 X10^3/uL (2.7-7.7); Neutrophil % 63.4 % (47-70); POSITIVE COUNT NO; POSITIVE DIFFERENTIAL NO; POSITIVE MORPHOLOGY NO; Platelet Count 263 K/mm3 (150-450); RBC Distribution Width CV 13.1 % (11.6-14.6); Red Blood Count 3.67 M/mm3 (4.6-6.2); White Blood Count 7.4 K/mm3 (4.4-11.0)
[2018-07-23 17:31] LABS: Anion Gap 7 (5-15); BUN 12 mg/dL (7-18); BUN/Creat Ratio 11.5 RATIO (10-20); Calcium,Total 8.7 mg/dL (8.5-10.1); Chloride 109 mmol/L (98-107); Creatinine, Serum 1.04 mg/dL (0.70-1.30); EST Glomerular Filtration Rate 76 mL/min (>60); Est Glom Filt Rate - Afr Amer 92 mL/min (>60); Estimated Creatinine Clearance 68.92 ml/min; Glucose 140 mg/dL (74-106); Potassium 3.9 mmol/L (3.5-5.1); Sodium Level 145 mmol/L (136-145)
[2018-07-23] MEDS: Morphine 4 MG/ML Syringe IV (17:33)
--- NOTE | 2018-07-23 18:18 | ED.DEP ---
ED Disposition - Plan for ED Patient: Disposition: Home or Assisted Living Chief Complaint: Back Instructions: ED Chest Pain NonCardiac Prescriptions: Tizanidine HCl [Zanaflex] 2 mg PO Q8H #10 tab Referrals: Care Physician,No Primary [NON-STAFF] -
[2018-07-23 18:28] VITALS: BP 135/69; PULSE 65; RESP 12; O2SAT 97
--- NOTE | 2018-07-23 18:29 | ED.RN ---
REVIEWED D/C INSTRUCTIONS AND S/S THAT WOULD WARRANT A RETURN TO THE ED WITH PT. PT VERBALIZED AN UNDERSTANDING AND DENIES FURTHER QUESTIONS FOR THIS RN. PT STATES THAT HE HAS NO WAY HOME, NO ONE TO CALL FOR A RIDE, AND HAS NO MONEY TO PAY FOR A CAB. RIGGER THIRD AWARE.
--- NOTE | 2018-07-23 18:55 | ED.RN ---
CALLED PT'S EMERGENCY CONTACT, [employer], TO SEE IF SHE CAN PROVIDE RIDE. SHE STATES SHE IS UNABLE BUT WILL TRY TO GET AHOLD OF PT'S SISTER. PT DISCHARGED AND SITTING IN WAITING ROOM WAITING FOR RIDE.
== END 2018-07-23 18:56 | disposition home or self-care (01) ==
PROVIDERS: Emergency Provider Emergency Medicine; Family Provider Nurse Practitioner Adult Health; PCP Nurse Practitioner Adult Health
DX: M54.5 Low back pain (principal); R07.9 Chest pain, unspecified; I10 Essential (primary) hypertension; I25.2 Old myocardial infarction; Z72.0 Tobacco use
CPT/HCPCS: 71045; 80048; 84484; 85025; 93005; 99285; A4216